=== PATIENT | female | born 2000 | race Two or more races ===

== ENCOUNTER 2019-06-16 13:53 | Emergency (ER) | payer OTHER ==
[~2019-06-16] VITALS: Ht 172.7 cm; Wt 72.6 kg
[2019-06-16 14:18] VITALS: BP_SYST 131
--- NOTE | 2019-06-16 16:37 | NUR ---
Patient to ER bed 2 to gown for evaluation. Side rails up. Report given to Noah CHEUNG.
--- NOTE | 2019-06-16 16:40 | NUR ---
Pt presents to ED c/o Abscess on L inner thight.Pth/o asthma.No other med hx
--- NOTE | 2019-06-16 16:50 | NUR ---
YONY Kaminski at bedside examining patient.
[2019-06-16] MEDS ORDERED: LIDOCAINE/EPI 2% 1:100000 20 ML VIAL INJ ONE (17:00)
[2019-06-16] MEDS ORDERED: IBUPROFEN 600 MG TABLET PO ONE (17:00)
--- NOTE | 2019-06-16 17:20 | NUR ---
Pt tolerated I&D well.
--- NOTE | 2019-06-16 17:40 | NUR ---
Wound care done.
--- NOTE | 2019-06-16 17:56 | NUR ---
Patient given written and verbal discharge instructions and verbalizes understanding. ER MD discussed with patient the results and treatment provided. Patient in stable condition. ID arm band Rx of Keflex,bactrim,motrin given. Patient educated on pain management and to follow up with PMD. Pain Scale 2. Opportunity for questions provided and answered. Medication side effect fact sheet provided.
[2019-06-16 18:10] VITALS: BP_SYST 131
== END 2019-06-16 18:10 | disposition home or self-care (01) ==
LOC: SED 13:53
DX: L02.416 Cutaneous abscess of left lower limb (principal); R03.0 Elevated blood-pressure reading, without diagnosis of hypertension
CPT/HCPCS: 99283

== ENCOUNTER 2019-06-18 13:59 | Emergency (ER) | payer OTHER ==
[~2019-06-18] VITALS: Ht 172.7 cm; Wt 74.8 kg
[2019-06-18 14:00] VITALS: BP_SYST 125
--- NOTE | 2019-06-18 14:00 | NUR ---
BROUGHT BACK TO BED #2 AND TRIAGED. REPORT GIVEN TO JASS
--- NOTE | 2019-06-18 14:10 | NUR ---
Pt states she is here for wound recheck. Pt states no pain at this time. No other complaints or injuries per pt or noted.
[2019-06-18] MEDS ORDERED: LIDOCAINE/EPI 2% 1:100000 20 ML VIAL INJ ONE (14:30)
--- NOTE | 2019-06-18 14:30 | NUR ---
YONY Kaminski [employer] at bedside examining patient and performing incision and drainage.
[2019-06-18 15:04] VITALS: BP_SYST 124
--- NOTE | 2019-06-18 15:04 | NUR ---
Patient given written and verbal discharge instructions and verbalizes understanding. ER MD discussed with patient the results and treatment provided. Patient in stable condition. ID arm band removed. No Rx given. Patient educated on pain management and to follow up with PMD. Pain Scale 0/10. Opportunity for questions provided and answered. Medication side effect fact sheet provided.
== END 2019-06-18 15:04 | disposition home or self-care (01) ==
LOC: SED 13:59
DX: L02.416 Cutaneous abscess of left lower limb (principal)
CPT/HCPCS: 99283

== ENCOUNTER 2019-06-20 17:13 | Emergency (ER) | payer OTHER ==
[~2019-06-20] VITALS: Ht 172.7 cm; Wt 74.8 kg
--- NOTE | 2019-06-20 17:50 | NUR ---
[facility] No other c/o at the moment
[2019-06-20 17:57] VITALS: BP_SYST 115
--- NOTE | 2019-06-20 17:57 | NUR ---
Patient to ER bed 04 to gown for evaluation. Side rails up. Report given to JONATAN Torres
--- NOTE | 2019-06-20 18:03 | NUR ---
ER at bedside examining patient.
--- NOTE | 2019-06-20 18:14 | NUR ---
Dr. Griffiths at the bedside doing a wound check
[2019-06-20 18:20] VITALS: BP_SYST 115
--- NOTE | 2019-06-20 18:20 | NUR ---
Patient given written and verbal discharge instructions and verbalizes understanding. ER MD discussed with patient the results and treatment provided. Patient in stable condition. ID arm band removed. Patient educated on pain management and to follow up with PMD. Pain Scale 0/10. Opportunity for questions provided and answered. Medication side effect fact sheet provided.
== END 2019-06-20 18:33 | disposition home or self-care (01) ==
LOC: SED 17:13
DX: S71.102D Unspecified open wound, left thigh, subsequent encounter (principal); Z48.00 Encounter for change or removal of nonsurgical wound dressing; X58.XXXD Exposure to other specified factors, subsequent encounter
CPT/HCPCS: 99283